=== PATIENT | female | born 1945 | race Asian ===

== ENCOUNTER 2016-09-16 09:26 | Outpatient (CLI) | payer MEDICARE, MEDICAID ==
[~2016-09-16 09:26] MED LIST: ADVAIR 250-501 EACH INH; CARDIZEM CD120 MG ORAL; COZAAR50 MG ORAL; CRESTOR40 MG ORAL; GUAIFENESIN-CO118 M1 ORAL; HYOSCYAMINE0.375 M2 PO; MEDROL DOSEPAK4 MG ORAL; NASONEX17 GM NASAL; PLAVIX75 MG ORAL; PROTONIX40 MG ORAL; RANEXA500 MG ORAL; SYMBICORT 16010.2 G1 IH; SYNTHROID50 MCG ORAL; TRAMADOL HCL50 MG ORAL; VITAMIN E400 UNI8 PO
== END 2016-09-16 11:26 | disposition home or self-care (01) ==
LOC: MAMMO 09:26
DX: Z12.31 Encounter for screening mammogram for malignant neoplasm of breast (principal)
CPT/HCPCS: 77067